=== PATIENT | male | born 1955 | race Caucasian/White ===

== ENCOUNTER → 2023-09-17 10:13 | Outpatient (CLI) | payer MEDICARE, SELFPAY ==
--- NOTE | ~2023-09-17 | MR_ITS ---
EXAMINATION: MR shoulder RT wo con DATE: 09/17/2023 10:44 INDICATION: Chronic right shoulder pain TECHNIQUE: Magnetic resonance imaging (MRI) of the right shoulder was performed without intravenous c ontrast. Sequences included axial PD-weighted FS FSE, coronal oblique PD-weighted FS FSE, coronal obl ique T2-weighted FS FSE, sagittal PD-weighted FS FSE, and sagittal T1-weighted SE. COMPARISON: None. FINDINGS: Coracoacromial arch: The acromion undersurface is curved in morphology (type II) with small subacromial spurs along the ma rgins of the inferior acromion. The coracoacromial ligament is normal. Moderate acromioclavicular ost eoarthritis with moderate size inferiorly directed marginal ossified at the head of the clavicle and exerts mild mass effect upon the anterior supraspinatus muscle and tendon. Rotator cuff: Moderate supraspinatus and mild infraspinatus tendinopathy with small full-thickness tear measuring 4 mm AP and up to 1 cm medial to lateral along the superior facet footplate . There is attenuation of the more posterior supraspinatus tendon and conjoined portion of the supraspinatus and infraspinatus tendons with partial thickness articular sided tear appears to involve approximately half of the thic kness of the lateral 3 cm the tendon with the bursal sided tear margin located at the level of the la teral rim of the acromion. The teres minor tendon is normal. Moderate tendinopathy without discrete t ear of the subscapularis tendon. Asymmetric mild fatty atrophy of the infraspinatus muscle belly. Biceps tendon, glenoid labrum and glenohumeral cartilage: Long head of the biceps tendon is normal. There is a tear of the superior to anterosuperior glenoid l abrum which extends across a normal anterosuperior sublingual foramen. Tiny marginal osteophytes juan c g the anterior to anteroinferior glenoid. Glenohumeral cartilage is normal. Fluid: Mild increased fluid in the long head biceps tendon sheath which is disproportionate to the physiolog ic amount fluid in the glenohumeral joint space consistent with mild bicipital tenosynovitis. No loos e osteochondral bodies. Small amount of fluid in the subacromial/subdeltoid bursa which could be due to bursitis or decompression of glenohumeral joint fluid through the full-thickness rotator cuff tear defect. This also likely communicates with a small amount of fluid in the acromioclavicular joint. Bones: Normal marrow signal with no edema, fracture or pathologic marrow replacing process. Mild likely dege nerative subarticular cystic change along the anterior margin of the lateral head of the clavicle. IMPRESSION: 1. Moderate supraspinatus and mild infraspinatus tendinopathy with small full-thickness tear at the d istal insertion of the mid supraspinatus tendon with moderate severity bursal sided tear extending po steriorly into the conjoined portion of the supraspinatus and infraspinatus tendons. 2. Tear at the superior to anterosuperior glenoid labrum. 3. Moderate acromioclavicular osteoarthritis. 4. Mild bicipital tenosynovitis. Reviewed, dictated and finalized at location A. [employer] IMPRESSION: 1. Moderate supraspinatus and mild infraspinatus tendinopathy with small full-t hickness tear at the distal insertion of the mid supraspinatus tendon with mode rate severity bursal sided tear extending posteriorly into the conjoined portio n of the supraspinatus and infraspinatus tendons. 2. Tear at the superior to anterosuperior glenoid labrum. 3. Moderate acromioclavicular osteoarthritis. 4. Mild bicipital tenosynovitis.
== END ==
PROVIDERS: PCP Orthopaedic Surgery; Visit Provider Orthopaedic Surgery
DX: M75.21 Bicipital tendinitis, right shoulder (principal); M19.011 Primary osteoarthritis, right shoulder
CPT/HCPCS: 73221

== ENCOUNTER 2025-08-19 08:47 | Outpatient (CLI) | payer MEDICARE, SELFPAY ==
--- NOTE | ~2025-08-19 | US_ITS ---
EXAMINATION: US renal BI, 08/19/2025 8:57 CDT HISTORY: Stage 3b kidney dz Comparison: None Technique: Reyes-scale and color Doppler images were obtained. Findings: KIDNEYS: The renal cortices are thinned and echogenic, no solid masses or calculi, no hydronephrosis. Right Kidney: Right kidney 10 x 5.5 x 6 cm, simple cyst superior pole 4.4 x 4.8 cm. Left Kidney: Left kidney 11.6 x 4.7 x 5.1 cm. Bladder: The bladder is unremarkable. . Impression: Medical renal disease without obstruction. Large simple right renal cyst Reviewed, dictated and finalized at location P. Impression: Medical renal disease without obstruction. Large simple right renal cyst
--- NOTE | ~2025-08-19 | US_ITS ---
EXAMINATION: US retroperitoneal duplex ltd DATE: 08/19/2025 10:28 CDT INDICATION: Chronic kidney disease TECHNIQUE: Sonographic imaging of the kidneys was performed with a 3.5 MHz transducer. Retroperitoneal duplex sonogram of the renal arteries also obtained. FINDINGS: No focal flow abnormalities are seen in the renal arteries on color Doppler. The peak systolic velocity ranges of the right and left renal arteries and aorta are 97 cm per second, 60 cm per second, and 90 cm per second, respectively. The velocities and renal to aortic ratios are within normal limits. IMPRESSION: 1. No Doppler evidence of renal artery stenosis. Reviewed, dictated and finalized at location O.
== END 2025-08-19 08:48 | disposition home or self-care (01) ==
PROVIDERS: PCP Internal Medicine
DX: N18.32 Chronic kidney disease, stage 3b (principal); N17.9 Acute kidney failure, unspecified; N28.1 Cyst of kidney, acquired
CPT/HCPCS: 76770; 93976